=== PATIENT | female | born 1940 | race Caucasian/White ===

== ENCOUNTER 2016-08-04 00:19 | Emergency (ER) | payer MEDICARE, OTHER ==
[2016-08-04] MEDS ORDERED: SODIUM CHLORIDE 0.9% 1,000 ML IV STA (00:48)
--- NOTE | 2016-08-04 00:54 | ED ---
Upper Extremity HPI - General Chief Complaint: Extremity Injury, Upper Stated Complaint: shoulder pain, back pain Time Seen by Provider: 08/04/16 00:25 Source: patient Mode of arrival: ambulatory Limitations: no limitations - History of Present Illness Initial Comments: This is a 76-year-old female with a history of non-small cell lung cancer who just finished treatment including chemo and radiation and also recently had pneumonia July 12 that was treated at [facility] who presents today with complaints that sharp left-sided shoulder left-sided anterior chest and left-sided back pain. She states is been intermittent for the last several weeks. Over last week has been on and off she states it just hurts is moderate to mild pain increases with movement and certain positions. She denies any cough fevers chills sweats or other symptoms at this time. She has been treated at [facility] for this several times in his neck getting any resolution. She denies any abdominal pain or other symptoms at this time MD Complaint: Injury to:: left, shoulder - Related Data Home Medications Medication Instructions Recorded Confirmed Linagliptin [Tradjenta] 1 tab PO DAILY 08/04/16 08/04/16 Prochlorperazine [Compazine] 1 tab PO DAILY 08/04/16 08/04/16 glipiZIDE [Glucotrol] 1 tab PO DAILY 08/04/16 08/04/16 Previous Rx's Medication Instructions Recorded Ibuprofen [Motrin] 600 mg PO Q6HR PRN #20 tab 08/04/16 Orphenadrine [Norflex] 100 mg PO Q12H #7 tablet.er 08/04/16 Allergies Allergy/AdvReac Type Severity Reaction Status Date / Time No Known Allergies Allergy Verified 08/04/16 00:28 Review of Systems ROS Statement: Those systems with pertinent positive or pertinent negative responses have been documented in the HPI. ROS Other: All systems not noted in ROS Statement are negative. Past Medical History Past Medical History: Cancer, Diabetes Mellitus History of Any Multi-Drug Resistant Organisms: None Reported Additional Past Surgical History / Comment(s): eye surgery Past Psychological History: No Psychological Hx Reported Smoking Status: Former smoker Past Alcohol Use History: None Reported Past Drug Use History: None Reported General Exam - General Exam Comments Initial Comments: This is a well-developed well-nourished awake alert oriented 3 female Limitations: no limitations General appearance: alert, in no apparent distress, anxious Head exam: Present: atraumatic, normocephalic, normal inspection Eye exam: Present: normal appearance, PERRL, EOMI. Absent: scleral icterus, conjunctival injection, periorbital swelling ENT exam: Present: normal exam, mucous membranes moist Neck exam: Present: normal inspection. Absent: tenderness, meningismus, lymphadenopathy Respiratory exam: Present: normal lung sounds bilaterally, chest wall tenderness (Is wall tenderness of left after else muscle left axilla and over the left scapular and trapezius muscular region. No step-off or crepitation). Absent: respiratory distress, wheezes, rales, rhonchi, stridor Cardiovascular Exam: Present: regular rate, normal rhythm, normal heart sounds. Absent: systolic murmur, diastolic murmur, rubs, gallop, clicks GI/Abdominal exam: Present: soft, normal bowel sounds. Absent: distended, tenderness, guarding, rebound, rigid Extremities exam: Present: normal inspection, full ROM, tenderness (Mild tenderness to palpation over the rotator cuff region in conjunction with the trapezius and the pectoralis muscles.), normal capillary refill. Absent: pedal edema, joint swelling, calf tenderness Back exam: Present: normal inspection Neurological exam: Present: alert, oriented X3, CN II-XII intact Psychiatric exam: Present: normal affect, normal mood Skin exam: Present: warm, dry, intact, normal color. Absent: rash Course Vital Signs 08/04/16 08/04/16 00:29 01:48 Temperature 98.6 F Pulse Rate 78 80 Respiratory 20 18 Rate Blood Pressure 140/78 144/79 O2 Sat by Pulse 97 99 Oximetry Medical Decision Making - Medical Decision Making Patient is feeling much improved at this time she will be discharged the presentation currently is consistent with musculoskeletal pain. She also was mildly dehydrated. She did give her the placement of magnesium which was at the low end of normal. She will be placed on a very short course of muscle relaxers and nonsteroidal anti-inflammatories. She was cautioned about these. She is to follow-up with her doctor and return when necessary - Lab Data Result diagrams: 08/04/16 00:45 08/04/16 00:45 Lab Results 08/04/16 08/04/16 08/04/16 Range/Units 00:45 00:45 00:45 WBC 5.1 (3.8-10.6) k/uL RBC 3.41 L (3.80-5.40) m/uL Hgb 11.6 (11.4-16.0) gm/dL Hct 34.0 (34.0-46.0) % MCV 99.6 (80.0-100.0) fL MCH 33.8 (25.0-35.0) pg MCHC 34.0 (31.0-37.0) g/dL RDW 14.9 (11.5-15.5) % Plt Count 246 (150-450) k/uL Neutrophils % 65 % Lymphocytes % 21 % Monocytes % 7 % Eosinophils % 3 % Basophils % 1 % Neutrophils # 3.3 (1.3-7.7) k/uL Lymphocytes # 1.1 (1.0-4.8) k/uL Monocytes # 0.4 (0-1.0) k/uL Eosinophils # 0.2 (0-0.7) k/uL Basophils # 0.0 (0-0.2) k/uL Macrocytosis Slight PT (9.0-12.0) sec INR (<1.1) APTT (22.0-30.0) sec Sodium 138 (137-145) mmol/L Potassium 4.6 (3.5-5.1) mmol/L Chloride 102 (98-107) mmol/L Carbon Dioxide 24 (22-30) mmol/L Anion Gap 12 mmol/L BUN 18 H (7-17) mg/dL Creatinine 0.80 (0.52-1.04) mg/dL Est GFR (MDRD) Af Amer >60 (>60 ml/min/1.73 sqM) Est GFR (MDRD) Non-Af >60 (>60 ml/min/1.73 sqM) Glucose 242 H (74-99) mg/dL Calcium 9.2 (8.4-10.2) mg/dL Magnesium 1.8 (1.6-2.3) mg/dL Total Bilirubin 0.4 (0.2-1.3) mg/dL AST 29 (14-36) U/L ALT 33 (9-52) U/L Alkaline Phosphatase 91 (38-126) U/L Total Creatine Kinase 118 (30-135) U/L CK-MB (CK-2) 1.0 (0.0-2.4) ng/mL CK-MB (CK-2) Rel Index 0.8 Troponin I <0.012 (0.000-0.034) ng/mL Total Protein 7.3 (6.3-8.2) g/dL Albumin 4.0 (3.5-5.0) g/dL Amylase 56 (30-110) U/L Lipase 36 (23-300) U/L 08/04/16 Range/Units 00:45 WBC (3.8-10.6) k/uL RBC (3.80-5.40) m/uL Hgb (11.4-16.0) gm/dL Hct (34.0-46.0) % MCV (80.0-100.0) fL MCH (25.0-35.0) pg MCHC (31.0-37.0) g/dL RDW (11.5-15.5) % Plt Count (150-450) k/uL Neutrophils % % Lymphocytes % % Monocytes % % Eosinophils % % Basophils % % Neutrophils # (1.3-7.7) k/uL Lymphocytes # (1.0-4.8) k/uL Monocytes # (0-1.0) k/uL Eosinophils # (0-0.7) k/uL Basophils # (0-0.2) k/uL Macrocytosis PT 9.9 (9.0-12.0) sec INR 1.0 (<1.1) APTT 22.0 (22.0-30.0) sec Sodium (137-145) mmol/L Potassium (3.5-5.1) mmol/L Chloride (98-107) mmol/L Carbon Dioxide (22-30) mmol/L Anion Gap mmol/L BUN (7-17) mg/dL Creatinine (0.52-1.04) mg/dL Est GFR (MDRD) Af Amer (>60 ml/min/1.73 sqM) Est GFR (MDRD) Non-Af (>60 ml/min/1.73 sqM) Glucose (74-99) mg/dL Calcium (8.4-10.2) mg/dL Magnesium (1.6-2.3) mg/dL Total Bilirubin (0.2-1.3) mg/dL AST (14-36) U/L ALT (9-52) U/L Alkaline Phosphatase (38-126) U/L Total Creatine Kinase (30-135) U/L CK-MB (CK-2) (0.0-2.4) ng/mL CK-MB (CK-2) Rel Index Troponin I (0.000-0.034) ng/mL Total Protein (6.3-8.2) g/dL Albumin (3.5-5.0) g/dL Amylase (30-110) U/L Lipase (23-300) U/L - EKG Data -: EKG Interpreted by Vt EKG shows normal: sinus rhythm (Sinus rhythm rate 84. Interval 156 QRS duration 88 daily since QTC of 364/4:30 this appears be a normal EKG), intervals , QRS complexes Rate: normal - Radiology Data Radiology results: report reviewed (I did review the x-ray report no acute findings), image reviewed Disposition Clinical Impression: Strain of shoulder, Myofascial pain on left side, Dehydration Disposition: HOME SELF-CARE Condition: Good Instructions: Muscle Strain (ED), Musculoskeletal Pain (ED), Dehydration (ED) Prescriptions: Ibuprofen [Motrin] 600 mg PO Q6HR PRN #20 tab PRN Reason: Pain Orphenadrine [Norflex] 100 mg PO Q12H #7 tablet.er
[2016-08-04 00:59] LABS: Basophils % (A) 1 %; CH 34.1; CHCM 34.3; Eosinophils # (A) 0.2 k/uL (0-0.7); Eosinophils % (A) 3 %; HDW 2.59; HGB 11.6 gm/dL (11.4-16.0); Luc # (Auto) 0.19; Luc % (Auto) 4; Lymphocytes # (A) 1.1 k/uL (1.0-4.8); Lymphocytes % (A) 21 %; MCH 33.8 pg (25.0-35.0); MCV 99.6 fL (80.0-100.0); Macrocytosis Slight; Mean Platelet Volume 7.8; Monocytes # (A) 0.4 k/uL (0-1.0); Monocytes % (A) 7 %; Neutrophils # (A) 3.3 k/uL (1.3-7.7); Neutrophils % (A) 65 %; RBC 3.41 m/uL (3.80-5.40); RDW 14.9 % (11.5-15.5); WBC 5.1 k/uL (3.8-10.6); WBC (Perox) 5.27
[2016-08-04 01:06] LABS: Prothrombin Time 9.9 sec (9.0-12.0)
[2016-08-04 01:14] LABS: ALT 33 U/L (9-52); AST 29 U/L (14-36); Alkaline Phosphatase 91 U/L (38-126); Amylase 56 U/L (30-110); Anion Gap 12 mmol/L; Blood Urea Nitrogen 18 mg/dL (7-17); Calcium 9.2 mg/dL (8.4-10.2); Carbon Dioxide 24 mmol/L (22-30); Chloride 102 mmol/L (98-107); Glucose 242 mg/dL (74-99); Magnesium 1.8 mg/dL (1.6-2.3); Non-African American GFR(MDRD) >60 (>60 ml/min/1.73 sqM); Sodium 138 mmol/L (137-145); Total Bilirubin 0.4 mg/dL (0.2-1.3); Total Protein 7.3 g/dL (6.3-8.2)
[2016-08-04 01:18] LABS: Potassium 4.6 mmol/L (3.5-5.1)
[2016-08-04 01:19] LABS: Creatine Kinase 118 U/L (30-135)
[2016-08-04] MEDS ORDERED: SODIUM CHLORIDE 0.9% 500 ML IV STA (01:26)
[2016-08-04] MEDS ORDERED: MAGNESIUM SULFATE-D5W PMX 1 GM in DEXTROSE/WATER 1 100ML.BAG IVPB ONE (01:27)
--- NOTE | 2016-08-04 01:31 | XR ---
EXAMINATION TYPE: XR chest 2V DATE OF EXAM: 08/04/2016 1:16 AM COMPARISON: NONE HISTORY: Chest pain TECHNIQUE: Frontal and lateral views of the chest are obtained. FINDINGS: Heart is normal. Lungs are clear of consolidation. There are no hilar masses. Costophrenic angles are clear. There are chest leads. Bony thorax is intact. IMPRESSION: No cardiopulmonary disease. Normal heart.
[2016-08-04 01:32] LABS: Troponin I <0.012 ng/mL (0.000-0.034)
[2016-08-04] MEDS ORDERED: ORPHENADRINE 30 MG/ML 2 ML VIAL IVP STA (01:34)
[2016-08-04 02:57] VITALS: BP 155/77; PULSE 76; RESP 20; TEMP 97.7
== END 2016-08-04 02:57 | disposition home or self-care (01) ==
LOC: EC 00:19
DX: S46.912A Strain of unspecified muscle, fascia and tendon at shoulder and upper arm level, left arm, initial encounter (principal); X58.XXXA Exposure to other specified factors, initial encounter; E86.0 Dehydration; M79.1 Myalgia; Z85.118 Personal history of other malignant neoplasm of bronchus and lung; Z79.899 Other long term (current) drug therapy; E11.9 Type 2 diabetes mellitus without complications; Z87.891 Personal history of nicotine dependence
CPT/HCPCS: 36415; 93005; 80053; 82150; 82550; 82553; 83690; 83735; 84484; 85025; 85610; 85730; 71020; 96365; 96375; 96361; 99284; J2360; J3475